=== PATIENT | female | born 1940 ===

== ENCOUNTER 2020-11-08 06:46 | Day surgery (SDC) | payer OTHER | END 2020-11-08 11:40 | disposition home or self-care (01) | LOC: AMB-ENDOS 06:46 | PROVIDERS: ATTEND Surgery | DX: D12.2 Benign neoplasm of ascending colon (principal); D12.3 Benign neoplasm of transverse colon; Z20.822 Contact with and (suspected) exposure to COVID-19 ==

== ENCOUNTER 2024-02-25 09:02 | Outpatient (CLI) | payer OTHER | END 2024-02-25 14:16 | disposition home or self-care (01) | LOC: MRI 09:02 | DX: I74.01 Saddle embolus of abdominal aorta (principal) | CPT/HCPCS: 74183; Q9965 ==